=== PATIENT | female | born 1985 | race Caucasian/White ===

== ENCOUNTER 2018-04-09 19:56 | Emergency (ER) | payer BC, OTHER ==
[2018-04-09] MEDS ORDERED: diphenhydrAMINE 50 MG/ML SDV ONE (20:00)
[2018-04-09] MEDS ORDERED: EPINEPHrine 1 MG/ML SDV ONE (20:00)
[2018-04-09] MEDS ORDERED: Ondansetron 4 MG Tab.DIS PO ONE (20:01)
[2018-04-09] MEDS ORDERED: Famotidine 20 MG Tab PO ONE (20:01)
[2018-04-09] MEDS ORDERED: methylPREDNISolone Sodium Succinate 125 MG/2 ML SDV IM ONE (20:02)
[2018-04-09] MEDS ORDERED: Famotidine 20 MG/2 ML SDV IVPUSH ONE (20:11)
[2018-04-09] MEDS ORDERED: Ondansetron 4 MG/2 ML SDV IVPUSH ONE (20:11)
[2018-04-09] MEDS ORDERED: methylPREDNISolone Sodium Succinate 125 MG/2 ML SDV IVPUSH ONE (20:12)
--- NOTE | 2018-04-09 20:12 | EDM.PDOC ---
ED HPI GENERAL MEDICAL PROBLEM - General Chief Complaint: Allergic Reaction Stated Complaint: allergic reaction difficulty breathing Time Seen by Provider: 04/09/18 20:01 Source of Information: Reports: Patient History Limitations: Reports: No Limitations - History of Present Illness INITIAL COMMENTS - FREE TEXT/NARRATIVE: Patient is a 33-year-old female who presents to the ED complaining of allergic reaction to something she ate approximately 45 minutes ago. Patient had completed her meal of chicken Nirmal and started noticing the roof of her mouth becoming numb, upper lip became swollen, and cheeks became mildly swollen and flushed. She has been nauseated with emesis. Notes she is very anxious and breathing rate has been elevated since start of symptoms. 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 States there was no shrimp within her meal. Staff at the restaurant states the patient's food is not prepared any were close to shrimp being prepared. Patient's use her EpiPen 1, 2 years ago. She's never had to be intubated for anaphylactic reaction. She denies being . States she consumed 1.5 beers this evening. Throat Pain Score (Numeric/FACES): 4 - Related Data Allergies Allergy/AdvReac Type Severity Reaction Status Date / Time amoxicillin Allergy Rash Verified 04/09/18 20:09 bee venom protein (honey bee) Allergy Anaphylactic Verified 04/09/18 20:09 Shock shellfish derived Allergy Airway Verified 04/09/18 20:09 Tightness strawberry Allergy Swelling Verified 04/09/18 20:09 Home Meds: Home Meds EPINEPHrine [Epipen] 0.3 mg INJECT ASDIRECTED 04/09/18 [History] Methylphenidate HCl [Concerta] 27 mg PO DAILY 04/09/18 [History] predniSONE [Prednisone] 40 mg PO QAM #10 tablet 04/09/18 [Rx] ED ROS ALLERGIC REACTION - Review of Systems Review Of Systems: ROS reveals no pertinent complaints other than HPI. ED EXAM GENERAL NO PERIP PULSE - Physical Exam Exam: See Below Exam Limited By: No Limitations General Appearance: Alert, WD/WN, Anxious, Mild Distress Eye Exam: Bilateral Eye: Conjunctival Injection, PERRL Ears: Hearing Grossly Normal Throat/Mouth: Normal Inspection, Normal Oropharynx, Normal Voice, No Airway Compromise Neck: Normal Inspection, Supple Respiratory/Chest: No Respiratory Distress, Lungs Clear, Normal Breath Sounds, No Accessory Muscle Use, Chest Non-Tender Cardiovascular: Normal Peripheral Pulses, Tachycardia GI/Abdominal: Normal Bowel Sounds, Soft, Non-Tender, No Organomegaly, No Distention Back Exam: Normal Inspection Extremities: Normal Inspection Neurological: Alert, Oriented, CN II-XII Intact, Normal Cognition, No Motor/ Sensory Deficits Psychiatric: Normal Affect, Normal Mood Skin Exam: Warm, Dry, Intact, Normal Color, No Rash Course - Vital Signs Last Recorded V/S: Last Vital Signs Temp 98.1 F 04/09/18 20:07 Pulse 119 H 04/09/18 20:07 Resp 21 H 04/09/18 20:07 BP 134/97 H 04/09/18 20:07 Pulse Ox 95 04/09/18 20:07 - Orders/Labs/Meds Meds: Medications Discontinued Medications Generic Name Dose Route Start Last Admin Trade Name Dcq PRN Reason Stop Dose Admin Diphenhydramine HCl Confirm 04/09/18 20:00 04/09/18 20:19 Benadryl Administered 04/09/18 20:01 50 mg Dose Administration 50 mg .ROUTE .STK-MED ONE Diphenhydramine HCl 50 mg 04/09/18 20:18 04/09/18 20:28 Benadryl IVPUSH 04/09/18 20:19 50 mg ONETIME ONE Administration Epinephrine HCl Confirm 04/09/18 20:00 04/09/18 20:26 Adrenalin Administered 04/09/18 20:01 Not Given Dose 1 mg .ROUTE .STK-MED ONE Famotidine 40 mg 04/09/18 20:01 04/09/18 20:21 Pepcid PO 04/09/18 20:02 Not Given ONETIME ONE Famotidine 40 mg 04/09/18 20:11 04/09/18 20:19 Pepcid IVPUSH 04/09/18 20:12 40 mg ONETIME ONE Administration Methylprednisolone Sodium Succinate 125 mg 04/09/18 20:02 04/09/18 20:26 Solu-Medrol IM 04/09/18 20:03 Not Given ONETIME ONE Methylprednisolone Sodium Succinate 125 mg 04/09/18 20:12 04/09/18 20:19 Solu-Medrol IVPUSH 04/09/18 20:13 125 mg ONETIME ONE Administration Ondansetron HCl 4 mg 04/09/18 20:01 04/09/18 20:26 Zofran Odt PO 04/09/18 20:02 Not Given ONETIME ONE Ondansetron HCl 4 mg 04/09/18 20:11 04/09/18 20:19 Zofran IVPUSH 04/09/18 20:12 4 mg ONETIME ONE Administration - Re-Assessments/Exams Free Text/Narrative Re-Assessment/Exam: IV will be started. Ordered Pepcid 40 mg IV, solumedrol 125 mg IV, Zofran 4 mg IV, and Benadryl 50 mg IV. 2018 reassessment, patient is feeling better. N/V has subsided. Swelling to lip and numbness to top of the mouth is improving. She has no sensation of throat swelling shut. VSS. HR decreasing with change in mentation. NO labs, ekg, and or cxr will be obtained. She has no additional concerning past medical hx. 04/09/18 21:20 Reassessment, patient is feeling much better. She has developed a faint urticaria to arms. No sob, wheezing, sensation of throat closing shut noted. N/V has subsided. Lip swelling perists but patient states it will blister then go away after a few days. This is a typical pattern for her. She is ready to go home. I have asked for her to stay another hour prior to discharge. Ideally the patient will stay another 3 hrs to observe to ensure symptoms do not come back. She still wants to leave within the next hr. I will prepare discharge instructions. 04/09/18 21:50 Reassessment, patient is feeling much better. No sob, wheezing, sensation of throat closing shut noted. She is ready to go home. Father is here to pick her up. Parents will stay with patient until midnight to ensure symptoms do not come back. The patient remained hemodynamically stable while under my care in the E.D. I discussed the concerning symptoms for which to returnto the E.D. with the patient/family. The patient/family verbalized understanding. All questions were answered. Departure - Departure Time of Disposition: 21:31 Disposition: Home, Self-Care 01 Condition: Good Clinical Impression: Allergic reaction to food Qualifiers: Encounter type: initial encounter Qualified Code(s): T78.1XXA - Other adverse food reactions, not elsewhere classified, initial encounter - Discharge Information Prescriptions: predniSONE [Prednisone] 40 mg PO QAM #10 tablet Instructions: Food Allergy Referrals: PCP,None [Primary Care Provider] - Forms: ED Department Discharge Additional Instructions: Take pepcid 40 mg everyday for 5 days, prednisone 40 mg every am for 5 days, and benadryl 25-50mg every 6 hrs as needed for itching. Please return to the E.D. if you develop any new or worsening symptoms as discussed.
[2018-04-09] MEDS ORDERED: diphenhydrAMINE 50 MG/ML SDV IVPUSH ONE (20:18)
== END 2018-04-09 22:15 | disposition home or self-care (01) ==
LOC: JD.ED 19:56
DX: T78.1XXA Other adverse food reactions, not elsewhere classified, initial encounter (principal); R22.0 Localized swelling, mass and lump, head; Z88.1 Allergy status to other antibiotic agents; Z91.030 Bee allergy status; Z91.018 Allergy to other foods; Z91.013 Allergy to seafood; Z79.899 Other long term (current) drug therapy
CPT/HCPCS: 96374; 96375; 99285; J1200; J2405; J2930; J3490

== ENCOUNTER 2025-01-11 12:37 | Observation (INO) | payer BC, OTHER ==
[2025-01-11] MEDS: Ondansetron 4 MG/2 ML SDV IVPUSH ONE ×2 (13:25)
[2025-01-11] MEDS: Lactated Ringers 1,000 ML IV ONE (13:25)
[2025-01-11] MEDS ORDERED: Sodium Chloride 0.9% 1,000 ML IV SCH (13:30)
[2025-01-11 13:37] LABS: BASOPHILS PERCENT AUTO 0.4 % (0.0-1.0); EOSINOPHILS ABSOLUTE AUTO 0.1 K/mm3 (0.0-0.4); EOSINOPHILS PERCENT AUTO 2.1 % (0.0-6.0); HEMATOCRIT 38.8 % (37.0-47.0); HEMOGLOBIN 12.9 gm/dl (12.0-16.0); IMMATURE GRAN ABSOLUTE AUTO 0.03 K/mm3 (0.00-0.05); IMMATURE GRAN PERCENT AUTO 0.5 % (0.0-0.4); LYMPHOCYTES ABSOLUTE AUTO 1.8 K/mm3 (1.0-4.8); LYMPHOCYTES PERCENT AUTO 31.7 % (24.0-44.0); MEAN CORPUSCULAR HEMOGLOBIN 31.5 pg (28.0-32.0); MEAN CORPUSCULAR HGB CONC 33.2 g/dl (32.0-36.0); MEAN CORPUSCULAR VOLUME 94.6 fl (83.0-99.0); MEAN PLATELET VOLUME 8.7 fl (9.4-12.3); MONOCYTES ABSOLUTE AUTO 0.7 K/mm3 (0.0-0.8); MONOCYTES PERCENT AUTO 12.4 % (0.0-8.0); NEUTROPHILS PERCENT AUTO 52.9 % (41.0-71.0); PLATELET COUNT,PLT 342 K/mm3 (150-400); WHITE BLOOD CELL COUNT,WBC 5.64 K/mm3 (3.9-11.3)
[2025-01-11] MEDS: Citric Acid/Sodium Citrate Solution 30 ML Cup PO ONE (13:38)
[2025-01-11] MEDS: Famotidine 20 MG/2 ML SDV IVPUSH ONE (13:38)
[2025-01-11 13:43] LABS: INR 0.98; PROTHROMBIN TIME 10.4 SECONDS (9.7-12.0)
[2025-01-11 13:48] LABS: A/G RATIO 1.1 (1-2); ALBUMIN 4.1 g/dl (3.4-5.0); ANION GAP 10.6 (5-15); BILIRUBIN TOTAL 0.5 mg/dL (0.2-1.0); CALCIUM 9.1 mg/dL (8.5-10.1); CREATININE 0.6 mg/dL (0.55-1.02); EST CRCL DRUG DOSING (CG) 125.73 mL/min; ETHANOL BLOOD MEDICAL 0.04 gm% (0.00); MAGNESIUM 1.8 mg/dL (1.8-2.4); POTASSIUM,K 3.6 mEq/L (3.5-5.1); PROTEIN TOTAL,TP 7.7 g/dl (6.4-8.2)
[2025-01-11] MEDS ORDERED: Rocuronium 50 MG/5 ML Vial ONE (13:59)
[2025-01-11] MEDS ORDERED: fentaNYL 100 MCG/2 ML SDV ONE (13:59)
[2025-01-11] MEDS ORDERED: Ondansetron 4 MG/2 ML SDV ONE ×2 (13:59→15:06)
[2025-01-11] MEDS ORDERED: Lidocaine 2% 5 ML SDV ONE (13:59)
[2025-01-11] MEDS ORDERED: Propofol 200 MG/20 ML SDV ONE (13:59)
[2025-01-11] MEDS ORDERED: Dexamethasone 4 MG/ML 5 ML MDV ONE (13:59)
[2025-01-11] MEDS ORDERED: Succinylcholine 200 MG/10 ML MDV ONE (13:59)
[2025-01-11] MEDS ORDERED: Metoclopramide 10 MG/2 ML SDV ONE (14:30)
[2025-01-11] MEDS ORDERED: ceFAZolin 2 GM Vial ONE (14:30)
[2025-01-11] MEDS ORDERED: Lactated Ringers 1,000 ML ONE (14:46)
[2025-01-11] MEDS ORDERED: Sugammadex Sodium 200 MG/2 ML VIAL IV ONE (14:54)
[2025-01-11] MEDS ORDERED: Ondansetron 4 MG/2 ML SDV IVPUSH PRN ×2 (15:01→15:47)
[2025-01-11] MEDS ORDERED: HYDROmorphone 0.5 MG/0.5 ML Syringe IVPUSH PRN (15:01)
[2025-01-11] MEDS ORDERED: Ketorolac 30 MG/ML SDV ONE (15:06)
[2025-01-11] MEDS ORDERED: Acetaminophen 325 MG Tab PO PRN (15:47)
[2025-01-11] MEDS: Ketorolac 30 MG/ML SDV ONE (16:05)
[2025-01-11] MEDS ORDERED: Ketorolac 30 MG/ML SDV IVPUSH PRN (16:13)
[2025-01-11] MEDS: fentaNYL 100 MCG/2 ML SDV IVPUSH PRN (16:21)
[2025-01-11] MEDS: Lactated Ringers 1,000 ML ONE (16:25)
[2025-01-11] MEDS: Clindamycin Phosphate in D5W 900 MG in Premix Bag 1 BAG IV SCH (17:27)
[2025-01-11] MEDS: ceFAZolin 2 GM in Sodium Chloride 0.9% 50 ML IV ONE (17:35)
[2025-01-11 18:23] LABS: BARBITURATE SCREEN,URINE NEGATIVE (CUTOFF=200); BENZODIAZEPINES SCREEN,URINE NEGATIVE (CUTOFF=150); BUPRENORPHINE SCREEN,URINE NEGATIVE (CUTOFF=10); METHADONE SCREEN, URINE NEGATIVE (CUTOFF=200); METHAMPHETAMINES SCREEN, URINE NEGATIVE (CUTOFF=500); OXYCODONE SCREEN,URINE NEGATIVE (CUT0FF=100); THC SCREEN,URINE 20 NG/ML PRESUMPTIVE POSITIVE (CUTOFF=50)
[2025-01-11 18:25] LABS: AMPHETAMINES SCREEN, URINE PRESUMPTIVE POSITIVE (CUTOFF=500)
[2025-01-11] MEDS ORDERED: Ketorolac 30 MG/ML SDV IVPUSH SCH (22:00)
[2025-01-11] MEDS: oxyCODONE 5 MG Tab PO PRN (22:03)
[2025-01-12] MEDS: Ketorolac 30 MG/ML SDV IVPUSH SCH (00:37)
[2025-01-12 05:36] LABS: ANION GAP 12.7 (5-15); CALCIUM 8.2 mg/dL (8.5-10.1); CREATININE 0.5 mg/dL (0.55-1.02); EST CRCL DRUG DOSING (CG) 134.58 mL/min; POTASSIUM,K 3.7 mEq/L (3.5-5.1)
[2025-01-12 05:50] LABS: MEAN CORPUSCULAR HEMOGLOBIN 31.9 pg (28.0-32.0); MEAN CORPUSCULAR HGB CONC 34.3 g/dl (32.0-36.0); MEAN CORPUSCULAR VOLUME 92.9 fl (83.0-99.0); PLATELET COUNT,PLT 297 K/mm3 (150-400); RED BLOOD CELL COUNT 3.23 M/mm3 (4.10-5.30); WHITE BLOOD CELL COUNT,WBC 7.55 K/mm3 (3.9-11.3)
[2025-01-12 05:51] LABS: HEMOGLOBIN 10.3 gm/dl (12.0-16.0)
[2025-01-12] MEDS: FLUoxetine 20 MG Cap PO SCH (08:35)
[2025-01-12] MEDS ORDERED: AMPHETAMINE PO SCH (09:00)
[2025-01-12] MEDS ORDERED: DEXTROAMPHETAMINE PO SCH (09:00)
== END 2025-01-12 09:05 | disposition home or self-care (01) ==
LOC: JD.ED 12:37 → JD.SDS 12:37 → JD.ED 12:49 → JD.MS 13:49 → JD.ED 13:50 → UNDOADMOB 13:51 → JD.MS 13:51 → EDSTATUS 14:23 → JD.ED 14:49
PROVIDERS: ADMIT Obstetrics & Gynecology; ATTEND Obstetrics & Gynecology
DX: N93.9 Abnormal uterine and vaginal bleeding, unspecified (principal); Z90.710 Acquired absence of both cervix and uterus; F41.9 Anxiety disorder, unspecified; Z87.891 Personal history of nicotine dependence; Z88.0 Allergy status to penicillin; Z91.013 Allergy to seafood; Z91.030 Bee allergy status; Z91.018 Allergy to other foods
CPT/HCPCS: 36415; 57410; 80048; 80053; 80306; 80307; 83735; 85025; 85027; 85610; 86850; 86900; 86901; 94761; A9270; J0330; J0736; J1100; J1580; J1885; J2003; J2405; J2704; J3010; J7120; 96374; G0378; J0690; J2765; J3490